=== PATIENT | male | born 1955 | race American Indian/Alaskan Native ===

== ENCOUNTER 2019-02-22 10:48 | Outpatient (CLI) | payer OTHER | END 2019-02-22 11:01 | disposition home or self-care (01) | LOC: RAD 501 10:48 | DX: M25.561 Pain in right knee (principal); R26.2 Difficulty in walking, not elsewhere classified ==

== ENCOUNTER → 2019-07-27 | Outpatient (CLI) | payer OTHER | END | disposition home or self-care (01) | LOC: NUCLEAR 09:34 | DX: I20.1 Angina pectoris with documented spasm (principal) | CPT/HCPCS: 78452; 93017; A9500; J0153 ==

== ENCOUNTER 2020-03-04 10:25 | Outpatient (CLI) | payer OTHER | END 2020-03-04 10:37 | disposition home or self-care (01) | LOC: RAD 10:25 | PROVIDERS: ATTEND Internal Medicine Cardiovascular Disease | DX: J44.9 Chronic obstructive pulmonary disease, unspecified (principal); J45.998 Other asthma; R07.89 Other chest pain ==

== ENCOUNTER 2020-08-16 08:29 | Outpatient (CLI) | payer OTHER | END 2020-08-16 08:30 | disposition home or self-care (01) | LOC: NUCLEAR 08:29 | PROVIDERS: ATTEND Internal Medicine Cardiovascular Disease | DX: I20.8 Other forms of angina pectoris (principal) | CPT/HCPCS: 78452; 93017; A9500 ==